=== PATIENT | female | born 1990 | race Two or more races ===

== ENCOUNTER 2019-06-27 03:13 | Emergency (ER) | payer MEDICAID, OTHER ==
[~2019-06-27] VITALS: Ht 170.2 cm; Wt 149.7 kg
[2019-06-27] MEDS: cloNIDine HCL 0.1 MG TAB PO ONE ×2 (03:45→05:00)
[2019-06-27 03:49] VITALS: BP 140/93
[2019-06-27 04:10] LABS: Basophils # (auto) 0 10 ^3/uL (0-0.2); Basophils % (auto) 0.2 % (0.0-2.0); Eosinophils # (auto) 0.1 10 ^3/uL (0-0.8); Eosinophils % (auto) 1.1 % (0.0-7.0); Hematocrit 35.7 % (36.0-46.0); Lymphocytes # (auto) 1.8 10 ^3/uL (0.4-5.4); Lymphocytes % (auto) 21.6 % (10.0-50.0); Mean Corpuscular Hemoglobin 30.1 pg (28.0-32.0); Mean Corpuscular Hgb Conc. 33.5 g/dL (32.0-36.0); Mean Corpuscular Volume 89.8 fL (80.0-100.0); Monocytes # (auto) 0.6 10 ^3/uL (0-1.3); Monocytes % (auto) 7.6 % (0.0-12.0); Neutrophils # (auto) 5.8 10 ^3/uL (1.6-8.6); Neutrophils % (auto) 69.5 % (37.0-80.0); Nucleated Red Blood Cells % 0.1 %; Platelet Count (auto) 202 10^3/uL (140-450); Red Blood Cells 3.97 10^6/uL (4.0-5.20); Red Cell Distribution Width 13.6 % (11.8-14.3); White Blood Cell 8.4 10^3/uL (4.4-10.8)
[2019-06-27 04:16] LABS: Urine Bacteria FEW /hpf (None Seen); Urine Blood 1+ /uL (Negative); Urine Hyaline Cast FEW /lpf (0 - 2); Urine Mucus FEW (None Seen); Urine Specific Gravity 1.035 (1.001-1.035); Urine WBC 23 /hpf (0 - 5)
[2019-06-27 04:26] LABS: Albumin 2.1 g/dL (3.4-5.0); Calcium 8.2 mg/dL (8.5-10.1)
[2019-06-27 04:29] LABS: BUN/Creatinine Ratio 12.1; Bilirubin, Total 0.2 mg/dL (0.2-1.0); Total Protein 6.5 g/dL (6.4-8.2)
== END 2019-06-27 04:57 | disposition home or self-care (01) ==
LOC: ER 03:13
DX: Z32.01 Encounter for pregnancy test, result positive (principal); R10.30 Lower abdominal pain, unspecified
CPT/HCPCS: 36415; 80053; 81001; 84702; 85025

== ENCOUNTER 2019-06-30 03:57 | Inpatient (IN) | payer MEDICAID ==
[~2019-06-30] VITALS: Ht 170.2 cm; Wt 154.2 kg
[2019-06-30 05:56] LABS: Basophils # (auto) 0 10 ^3/uL (0-0.2); Basophils % (auto) 0.4 % (0.0-2.0); Eosinophils # (auto) 0.1 10 ^3/uL (0-0.8); Eosinophils % (auto) 0.8 % (0.0-7.0); Hematocrit 33.4 % (36.0-46.0); Hemoglobin 11.5 g/dL (12.2-16.2); Lymphocytes % (auto) 24.4 % (10.0-50.0); Mean Corpuscular Hemoglobin 30.6 pg (28.0-32.0); Mean Corpuscular Hgb Conc. 34.5 g/dL (32.0-36.0); Mean Corpuscular Volume 88.7 fL (80.0-100.0); Monocytes # (auto) 0.7 10 ^3/uL (0-1.3); Monocytes % (auto) 8.2 % (0.0-12.0); Neutrophils # (auto) 5.5 10 ^3/uL (1.6-8.6); Neutrophils % (auto) 66.2 % (37.0-80.0); Nucleated Red Blood Cells % 0.1 %; Platelet Count (auto) 186 10^3/uL (140-450); Red Blood Cells 3.76 10^6/uL (4.0-5.20); Red Cell Distribution Width 13.6 % (11.8-14.3); White Blood Cell 8.3 10^3/uL (4.4-10.8)
[2019-06-30 06:13] LABS: Urine Bacteria FEW /hpf (None Seen); Urine Blood 1+ /uL (Negative); Urine Hyaline Cast FEW /lpf (0 - 2); Urine Mucus FEW (None Seen); Urine Specific Gravity 1.024 (1.001-1.035); Urine WBC 2 /hpf (0 - 5)
[2019-06-30] MEDS ORDERED: LABETALOL HCL 200 MG TAB PO ONE (06:15)
[2019-06-30] MEDS ORDERED: hydrALAZINE HCL 20 MG/ML VL IV ONE (06:15)
[2019-06-30 06:27] LABS: BUN/Creatinine Ratio 13.6; Bilirubin, Total 0.2 mg/dL (0.2-1.0); Calcium 8.2 mg/dL (8.5-10.1); Total Protein 6.2 g/dL (6.4-8.2); Uric Acid 5.2 mg/dL (2.6-6.0)
[2019-06-30 06:57] LABS: INR 0.94 (0.9-1.15); Partial Thromboplastin Time 27.3 sec (23.64-32.05)
[2019-06-30 07:17] LABS: Alcohol, Urine < 3.0 mg/dL (0-5); Amphetamine Screen, Urine NEGATIVE (NEGATIVE); Barbiturate Scree,Urine NEGATIVE (NEGATIVE); Benzodiazephine Screen, Urine NEGATIVE (NEGATIVE); Cannabinoid Screen, Urine NEGATIVE (NEGATIVE); Cocaine Screen, Urine NEGATIVE (NEGATIVE); Opiate Scree,Urine NEGATIVE (NEGATIVE); Phencyclidine Screen, Urine NEGATIVE (NEGATIVE)
[2019-06-30] MEDS ORDERED: LACTATED RINGER'S 1,000 ML IV SCH ×2 (08:47→09:32)
[2019-06-30] MEDS ORDERED: MAGNESIUM SULFATE 40MG/ML 1,000 ML IV SCH (09:32)
[2019-06-30] MEDS ORDERED: MAGNESIUM SULFATE 100 ML IV ONE ×2 (09:45)
--- NOTE | 2019-06-30 09:47 | NUR ---
MAGNESIUM UNABLE TO SCAN, ATTEMPTED OUTER AND INNER BAG. PHARMACY NOTIFIED AND STATES IT SCANNED THERE SO IT MUST BE OUR SCANNER.
[2019-06-30] MEDS ORDERED: MAGNESIUM SULFATE 1GM/100ML 200 ML IV ONE (10:00)
[2019-07-01 04:10] LABS: RPR Non Reactive (Non Reactive)
[2019-07-01 06:06] LABS: Rubella Antibodies, IgG 1.68 index (Immune >0.99)
== END 2019-06-30 12:10 | disposition short-term general hospital (02) | DRG 566 ==
LOC: LDRP 03:57 → OBSVTOIN 07:55
PROVIDERS: ADMIT Specialist; ATTEND Specialist
PROC: 0T9B70Z Drainage of Bladder with Drainage Device, Via Natural or Artificial Opening (ICD-10-PCS; principal; 2019-06-30)
DX: O48.0 Post-term pregnancy (principal); E66.01 Morbid (severe) obesity due to excess calories; O36.63X0 Maternal care for excessive fetal growth, third trimester, not applicable or unspecified; O13.3 Gestational [pregnancy-induced] hypertension without significant proteinuria, third trimester; O14.90 Unspecified pre-eclampsia, unspecified trimester; O99.213 Obesity complicating pregnancy, third trimester; Z3A.40 40 weeks gestation of pregnancy; Z98.891 History of uterine scar from previous surgery; Z11.59 Encounter for screening for other viral diseases
CPT/HCPCS: 36415; 51702; 59025; 76805; 80053; 80307; 81001; 81002; 84112; 84550; 85025; 85362; 85379; 85610; 85730; 86592; 86703; 86762; 86850; 86900; 86901; 87340; 96361; 96365; 96366; 96375; G0378

== ENCOUNTER 2022-08-12 22:04 | Emergency (ER) | payer MEDICAID ==
[~2022-08-12] VITALS: Ht 172.7 cm; Wt 150.0 kg
[2022-08-12 22:04] VITALS: BP 114/62
[2022-08-13] MEDS ORDERED: ERY05OO OP (01:45)
[2022-08-13] MEDS ORDERED: FLUORESCEIN SOD OPTH TEST STRIP RIGHTEYE ONE (02:00)
[2022-08-13] MEDS ORDERED: TETRACAINE HCL 0.5% OPTH(EYE) SOLN 4ML RIGHTEYE ONE (02:00)
== END 2022-08-13 02:35 | disposition home or self-care (01) ==
LOC: ER 22:19
DX: S05.01XA Injury of conjunctiva and corneal abrasion without foreign body, right eye, initial encounter (principal); Z79.2 Long term (current) use of antibiotics; X58.XXXA Exposure to other specified factors, initial encounter; Y93.89 Activity, other specified; Y92.89 Other specified places as the place of occurrence of the external cause; Y99.8 Other external cause status

== ENCOUNTER → 2024-11-17 | Emergency (ER) | payer MEDICAID ==
[~2024-11-17] VITALS: Ht 170.2 cm; Wt 180.3 kg
[~2024-11-17] MED LIST: ERY05OO OP
[2024-11-17 22:50] VITALS: BP 151/104; PULSE 101; RESP 18; TEMP 98; O2SAT 99
== END | disposition left against medical advice (07) ==
LOC: ER 22:51
DX: J11.1 Influenza due to unidentified influenza virus with other respiratory manifestations (principal); Z53.21 Procedure and treatment not carried out due to patient leaving prior to being seen by health care provider